=== PATIENT | female | born 1975 | race Caucasian/White ===

== ENCOUNTER → 2017-07-29 | Outpatient (CLI) | payer OTHER ==
[~2017-07-29] MED LIST: AMLO2.5T PO; CITA20TA4 PO; LOSA50TA PO; SYNT112T PO
[2017-07-29 14:13] LABS: AUTOMATED NEUTROPHIL # 4.2 TH/MM3 (1.8-7.7); BASOPHIL % 0.3 % (0.0-2.0); EOSINOPHIL # 0.1 TH/MM3 (0-0.4); EOSINOPHIL % 0.8 % (0.0-4.0); HEMATOCRIT 39.7 % (35.0-46.0); HEMO FLAGS DIFF FINAL; LYMPH % 29.2 % (9.0-44.0); MEAN CELL VOLUME 92.7 FL (80.0-100.0); MEAN CORPUSCULAR HEMOGLOBIN 31.6 PG (27.0-34.0); MEAN CORPUSCULAR HGB CONC 34.1 % (32.0-36.0); MONO % 9.6 % (0.0-8.0); NEUT % 60.1 % (16.0-70.0); PLATELET COUNT 236 TH/MM3 (150-450); RED BLOOD COUNT 4.28 MIL/MM3 (4.00-5.30); RED CELL DISTRIBUTION WIDTH 13.5 % (11.6-17.2); WHITE BLOOD COUNT 6.9 TH/MM3 (4.0-11.0)
[2017-07-29 14:13] LABS: BACTERIA, URINE RARE /hpf; BLOOD, URINE NEG (NEG); GLUCOSE,URINE NEG (NEG); KETONE, URINE NEG (NEG); NITRITE,URINE NEG (NEG); SQUAMOUS EPITHELIAL CELL URINE <1 /hpf (0-5); URINE COLOR LIGHT-YELLOW (YELLW/STRAW)
[2017-07-29 14:42] LABS: BICARBONATE 23.8 MEQ/L (21.0-32.0); POTASSIUM 3.5 MEQ/L (3.5-5.1)
== END ==
LOC: CPRE 12:52
PROVIDERS: ATTEND Obstetrics & Gynecology
DX: Z01.812 Encounter for preprocedural laboratory examination (principal); N92.0 Excessive and frequent menstruation with regular cycle; N83.209 Unspecified ovarian cyst, unspecified side
CPT/HCPCS: 36415; 80048; 81001; 85025

== ENCOUNTER 2017-08-03 08:30 | Observation (INO) | payer OTHER ==
[~2017-08-03] VITALS: Ht 157.5 cm; Wt 92.9 kg
[2017-08-03] MEDS ORDERED: LACTATED RINGER'S 1000 ML IV PRN (09:00)
[2017-08-03] MEDS ORDERED: SODIUM CHLORID 0.9% 500 ML IV PRN (09:00)
[2017-08-03] MEDS ORDERED: POVIDONE IODINE 5% (ANTISEPSIS KIT) 4 APPLICATIONS EACH NARE PRN (09:00)
[2017-08-03] MEDS ORDERED: METOPROLOL TARTRATE 25 MG TAB PO PRN (09:00)
[2017-08-03] MEDS ORDERED: INSULIN HUMAN REGULAR 1,000 UNITS/10 ML VIAL SQ PRN (09:00)
[2017-08-03] MEDS ORDERED: CHLORHEXIDINE GLUCONATE 2 % 1 PACK (2 CLOTHS) TOPICAL PRN (09:00)
[2017-08-03] MEDS ORDERED: ceFAZolin 2 GM PREMIX 50 ML IV SCH (09:00)
[2017-08-03] MEDS ORDERED: NEOSTIGMINE 3 MG/3 ML SYR IV ONE (12:00)
[2017-08-03] MEDS ORDERED: ROCURONIUM INJ 50 MG/5 ML SYRINGE IV PUSH ONE (12:00)
[2017-08-03] MEDS ORDERED: ePHEDrine/NS 25 MG/5 ML SYR IV ONE (12:00)
[2017-08-03] MEDS ORDERED: PHENYLEPH/NS 1000 MCG/10 ML SYR IV ONE (12:00)
[2017-08-03] MEDS ORDERED: ONDANSETRON HCL 4 MG/2 ML VIAL IV PUSH ONE (12:00)
[2017-08-03] MEDS ORDERED: MIDAZOLAM HCL 2 MG/2 ML VIAL IV ONE (12:00)
[2017-08-03] MEDS ORDERED: LACTATED RINGER'S 1000 ML INJ 2,000 ML IV ONE (12:00)
[2017-08-03] MEDS ORDERED: DEXAMETHASONE SOD PHOS 4 MG/ML VIAL IV ONE (12:00)
[2017-08-03] MEDS ORDERED: MORPHINE SULFATE 4 MG/ML INJ IV ONE (12:00)
[2017-08-03] MEDS ORDERED: LIDOCAINE HCL 1% PF 5 ML AMPULE OTHER ONE (12:00)
[2017-08-03] MEDS ORDERED: SODIUM CHLORIDE 0.9% 20 ML VIAL IV ONE (12:00)
[2017-08-03] MEDS ORDERED: GLYCOPYRROLATE 1 MG/5 ML SYRINGE IV PUSH ONE (12:00)
[2017-08-03] MEDS ORDERED: PROPOFOL 200 MG/20 ML AMP IV ONE ×2 (12:00)
[2017-08-03] MEDS ORDERED: FAMOTIDINE 20 MG/2 ML VIAL ONE (12:39)
[2017-08-03] MEDS ORDERED: ACETAMINOPHEN 1000 MG/100 ML 100 ML IV ONE (12:39)
[2017-08-03] MEDS ORDERED: diphenhydrAMINE HCL 25 MG CAP PO PRN (16:30)
[2017-08-03] MEDS ORDERED: oxyCODONE/ACETAMINOPHEN 5 MG/325 MG TAB PO PRN ×2 (16:30)
[2017-08-03] MEDS ORDERED: PROMETHAZINE INJ 25 MG/ML VIAL IM PRN (16:30)
[2017-08-03] MEDS ORDERED: IBUPROFEN 600 MG TAB PO PRN (16:30)
[2017-08-03] MEDS ORDERED: ONDANSETRON HCL 4 MG/2 ML VIAL IVP PRN (16:30)
[2017-08-03] MEDS ORDERED: SODIUM CHLORIDE 0.9% FLUSH 10 ML FLUSH IV FLUSH PRN (16:30)
[2017-08-03] MEDS ORDERED: ZOLPIDEM TARTRATE 5 MG TAB PO PRN (16:30)
[2017-08-03] MEDS ORDERED: DO NOT ADM ANY ANTICOAGULANT DRUGS PRN (16:43)
[2017-08-03] MEDS: LACTATED RINGER'S 1000 ML INJ 1,000 ML IV SCH ×2 (16:55→23:00)
[2017-08-03 17:45] VITALS: BP 119/69; PULSE 80; RESP 16; TEMP 98.1; O2SAT 94
[2017-08-03] MEDS ORDERED: PILL SPLITTER OTHER PRN (18:00)
[2017-08-03] MEDS: HYDROmorphone HCL PF 2 MG/ML VIAL IV PUSH PRN ×2 (18:22→22:41)
[2017-08-03] MEDS ORDERED: SIMETHICONE 80 MG CHEWABLE TAB PO ONE (19:15)
[2017-08-03] MEDS: DOCUSATE SODIUM 100 MG CAP PO SCH (19:43)
[2017-08-03 20:00] VITALS: BP 101/63; PULSE 85; RESP 18; TEMP 97.6
[2017-08-03] MEDS ORDERED: SODIUM CHLORIDE 0.9% FLUSH 10 ML FLUSH IV FLUSH SCH (21:00)
[2017-08-03] MEDS ORDERED: CITALOPRAM HYDROBROMIDE 20 MG TAB PO SCH (21:00)
[2017-08-03] MEDS ORDERED: LOSARTAN 50 MG TAB PO SCH (21:00)
[2017-08-04] VITALS: BP 90/49; PULSE 81; RESP 18; TEMP 98.4
[2017-08-04 04:00] VITALS: BP 97/60; PULSE 83; RESP 18; TEMP 98.6
[2017-08-04] MEDS ORDERED: LEVOTHYROXINE SODIUM 112 MCG TAB PO SCH (06:00)
[2017-08-04 06:03] LABS: AUTOMATED NEUTROPHIL # 11.1 TH/MM3 (1.8-7.7); BASOPHIL % 0.2 % (0.0-2.0); HEMATOCRIT 39.7 % (35.0-46.0); HEMOGLOBIN 13.3 GM/DL (11.6-15.3); LYMPH % 6.8 % (9.0-44.0); LYMPHOCYTE # 0.8 TH/MM3 (1.0-4.8); MEAN CELL VOLUME 92.8 FL (80.0-100.0); MEAN CORPUSCULAR HEMOGLOBIN 31.2 PG (27.0-34.0); MEAN CORPUSCULAR HGB CONC 33.6 % (32.0-36.0); MEAN PLATELET VOLUME 9.6 FL (7.0-11.0); MONO % 2.6 % (0.0-8.0); MONOCYTE # 0.3 TH/MM3 (0-0.9); NEUT % 90.4 % (16.0-70.0); PLATELET COUNT 250 TH/MM3 (150-450); RED BLOOD COUNT 4.27 MIL/MM3 (4.00-5.30); RED CELL DISTRIBUTION WIDTH 13.7 % (11.6-17.2); WHITE BLOOD COUNT 12.2 TH/MM3 (4.0-11.0)
[2017-08-04] MEDS: DOCUSATE SODIUM 100 MG CAP PO SCH (06:04)
[2017-08-04 06:22] LABS: BICARBONATE 22.2 MEQ/L (21.0-32.0); CREATININE 0.54 MG/DL (0.50-1.00)
--- NOTE | 2017-08-04 07:38 | HHI.PR ---
Subjective Remarks Doing well, pain is well controlled, eating well. Objective Vital Signs Vital Signs Date Time Temp Pulse Resp B/P (MAP) Pulse Ox O2 Delivery O2 Flow Rate FiO2 08/04/17 04:00 98.6 83 18 97/60 (72) 08/04/17 00:00 98.4 81 18 90/49 (63) 08/03/17 20:00 97.6 85 18 101/63 (76) 08/03/17 17:45 98.1 80 16 119/69 (86) 94 08/03/17 17:30 98.3 78 14 120/70 (87) 93 Room Air 08/03/17 17:14 86 14 117/67 (84) 95 Room Air 08/03/17 17:00 76 14 119/67 (84) 98 Nasal Cannula 2 08/03/17 16:44 97.4 75 14 119/56 (77) 97 Nasal Cannula 2 08/03/17 10:00 98.5 80 20 139/87 (104) 98 I/O 08/03/17 08/03/17 08/03/17 08/04/17 08/04/17 08/04/17 07:00 15:00 23:00 07:00 15:00 23:00 Intake Total 2825 ml 950 ml Output Total 550 ml 2700 ml Balance 2275 ml -1750 ml Intake Oral 300 ml 200 ml IV Total 625 ml 750 ml Other 1900 ml Output Urine Total 200 ml 2700 ml Estimated Blood Loss 350 ml Result Diagram: 08/04/17 0430 08/04/17 0430 Objective Remarks Chest is clear, regular rate and rhythm. Abdomen is soft and non-distended. Incision is clean and dry. Ext no CCE. A/P Assessment and Plan Post Op Day 1 Doing well Elevated sugar pre op BS was 91 Home today and return to office in two weeks. Alejandro Jackson MD Aug 04, 2017 07:38
[2017-08-04 08:00] VITALS: BP 125/78; PULSE 76; RESP 18; TEMP 98.8
[2017-08-04] MEDS ORDERED: amLODIPine BESYLATE 5 MG TAB PO SCH (09:00)
--- NOTE | 2017-08-04 09:01 | HHI.DCPOC ---
Discharge Care Plan Diagnosis: (1) History of hysterectomy (2) Pelvic pain Report Symptoms to Your Doctor -Temperature above 100.5 degrees -Redness, of incision or excessive or foul smelling drainage -Unusual pain or calf pain -Increased vaginal bleeding -Painful or difficulty urinating -Feelings of extreme sadness or anxiety after 2 weeks Goals to Promote Your Health * To prevent worsening of your condition and complications * To maintain your health at the optimal level Directions to Meet Your Goals Take your medications as prescribed Follow your dietary instruction Follow activity as directed Ensure plenty of rest for recovery Drink fluids for hydration Keep your appointments as scheduled Take your immunizations and boosters as scheduled If your symptoms worsen call your PCP, if no PCP go to Urgent Care Center or Emergency Room Smoking is Dangerous to Your Health. Avoid second hand smoke Call the 24-hour crisis hotline for domestic abuse at Alejandro Jackson MD Aug 04, 2017 09:01
--- NOTE | 2017-08-04 09:39 | MP ---
cc: Alejandro JACKSON MD Corrected Copy: 08/09/17 DATE OF SURGERY 08/03/2017 PREOPERATIVE DIAGNOSIS 1. Menorrhagia, status post endometrial ablation. 2. Right ovarian cyst. 3. Perineal skin tag POSTOPERATIVE DIAGNOSIS 1. Menorrhagia, status post endometrial ablation. 2. Right ovarian cyst. 3. Perineal skin tag 4. Adhesions of the omentum to the anterior abdominal wall. 5. Adhesions of the bladder to the lower uterine segment. PROCEDURE Laparoscopic-assisted vaginal hysterectomy, bilateral salpingectomy, right ovarian cystectomy, lysis of adhesions around the omentum to the anterior abdominal wall and thick dense adhesions of the bladder to the lower uterine segment, excision of an 8 mm left labial skin tag. ANESTHESIA General endotracheal intubation SURGEON Jojo Jackson MD FINDINGS Examination under anesthesia, the vagina was clean. The cervix was small, nulliparous. There was not much descensus at all. The uterus was normal size, shape and consistency and mobile. The adnexa were negative for masses. Laparoscopic exam revealed a normal uterus, fallopian tubes which had been ligated in the midportion bilaterally, left ovary and distal tube were normal. The right ovary had a small 3 cm cyst which may have in fact been a hydrosalpinx. The distal end of the right tube was convoluted and stuck to the pelvic sidewall. Both ovaries looked normal. The cul-de-sac, anterior-posterior was normal. The upper abdomen was normal. GI tract was normal. COMPLICATIONS None COUNTS Correct ESTIMATED BLOOD LOSS 75 cc FLUIDS Crystalloids DISPOSITION The patient tolerated the procedure well and went to the recovery room in good condition. PROCEDURE IN DETAIL The patient was taken to the operating room identified by name band and verbally given a general anesthetic, prepped and draped in the usual sterile manner for laparoscopic vaginal hysterectomy. A time-out was taken and an examination under anesthesia was carried out after the Martinez catheter was inserted. Once the Martinez catheter had been inserted and the exam under anesthesia was done. The skin tag on the right vulva was excised sharply. Then, the weighted speculum was placed in the vagina. The anterior lip of the cervix was grasped with a single-tooth tenaculum. The cervix was dilated to accept a V-Care device for uterine manipulation. The uterus sounded to 9 cm. The V-Care device was carefully placed and the attention was turned to the umbilical area. A small subumbilical incision was made. With a 5 mm trocar, a pneumoperitoneum was created once we entered the peritoneal cavity. The entire abdomen was inspected. There were some dense adhesions of the omentum to the anterior abdominal wall on the left side not close to the scar. These were taken down. I put it inferolateral to the umbilicus on the right. I put another 5 mm trocar and then we took down those adhesions with the KAREN Harmonic scalpel. Once this had been accomplished, another 5 mm trocar was placed on the left side inferolateral to the umbilicus. We began with taking the round ligaments down. The bladder was very firmly adhesed to the lower uterine segment and it was thought this may be a problem. We took the proximal tube and the broad ligament down on the left. There was some bleeding. This accounted for most of the bleeding of the whole case and we used Kleppinger's to control that bleeding on the uterus. Like I said, the bladder was very firmly adhesed. Using the harmonic scalpel, we carefully took down that bladder by sharp dissection. We continued until we got to the level of the internal cervical os. Using a laparoscopic peanut, we pushed the bladder of harm's way. There were still a lot of adhesions bilaterally. These were carefully taken down trying not to damage the uterine artery in this area. Once this had been accomplished, the uterine artery was taken bilaterally at the level of the internal cervical os with good results. Once that was hemostatic, we began pushing the bladder out of harm's way over the cervix until we reached the V-Care device. This took quite a bit of time and the cardinal ligament was then taken down with the Harmonic scalpel. Once we saw the outline of the V-Care device, we sharply incised it circumferentially and the specimen was then grasped using the V-Care device to pull the cervix down. We grasped the cervix with a double tooth tenaculum. We did need to use the laparoscopic tenaculum to take down that bladder and for taking those adhesions down. The tenaculum was still attached and we pushed that down towards the vaginal apex and the specimen was grasped with a double tooth tenaculum on the cervix and the tenaculum was released and the specimen delivered without difficulty. At this point, we closed the vaginal cuff with 0 Vic[address]1 with excellent results. Hemostasis was excellent. At this point, we concentrated on the right tube and right ovary. There was a hydrosalpinx there and it may have been a hydrosalpinx that we removed, but there was a distinct portion that looked like it came off the ovary. We dissected this by sharp dissection with the Harmonic scalpel and there was some bleeding of the sidewalls so this was taken care of with the Kleppinger forceps and then put a hemostatic agent in that area because she was oozing a little bit. Once we got that tube and ovarian cyst removed, we punctured the cyst because it looked perfectly benign and removed it through the 5-mm trocar. On the left side, that fallopian tube was much less distorted and there were no adhesions around there. We just took the mesosalpinx off and removed the tube through the 5 mm trocar. At this point, a large amount of fluid was used to irrigate. All areas were hemostatic. There was a little oozing from the right ovarian cystectomy and a hemostatic agent was placed in this area. We watched it for several minutes, there was no bleeding whatsoever. At this point, the trocars were removed. The laparoscope was removed under direct vision and the trocars were allowed to let the air released and removed. The skin was repaired with 4-0 Monocryl in a subcuticular manner. She tolerated the procedure well and went to the recovery room in good condition. R. MD LORNA Rodriguez/ELLEN /4:25 PM /12:18 PM
[2017-08-04] MEDS ORDERED: INFLUENZA VIRUS VACCINE (QUADRIVALENT) 0.5 ML SYR IM ONE (10:00)
== END 2017-08-04 10:11 | disposition home or self-care (01) ==
LOC: HSDC 08:30 → HSDI 17:10 → H1EA 18:03
PROVIDERS: ADMIT Obstetrics & Gynecology; ATTEND Obstetrics & Gynecology
DX: N92.0 Excessive and frequent menstruation with regular cycle (principal); N83.209 Unspecified ovarian cyst, unspecified side; N72 Inflammatory disease of cervix uteri; N90.89 Other specified noninflammatory disorders of vulva and perineum; K66.0 Peritoneal adhesions (postprocedural) (postinfection); N83.201 Unspecified ovarian cyst, right side; N83.11 Corpus luteum cyst of right ovary; F41.9 Anxiety disorder, unspecified; E03.9 Hypothyroidism, unspecified; I10 Essential (primary) hypertension; F32.9 Major depressive disorder, single episode, unspecified; R73.9 Hyperglycemia, unspecified; Z79.899 Other long term (current) drug therapy; Z23 Encounter for immunization
CPT/HCPCS: 00944; 11200; 58552; 80048; 85025; 86850; 86900; 86901; 88304; 88307; 96372; 96374; 96376; G0378; J0131; J0690; J1100; J1170; J2250; J2270; J2370; J2405; J2550; J2710; J3010; J7120; Q2038; 90686